=== PATIENT | female | born 1970 | race Caucasian/White ===

== ENCOUNTER 2017-11-26 08:25 | Inpatient (IN) | payer SELFPAY ==
[2017-11-26] MEDS ORDERED: Lidocaine 1% w/Epinephrine 1:100K 20 ML VIAL ONE (09:08)
[2017-11-26] MEDS ORDERED: Bacitracin Zinc 1 Packet ONE (09:58)
[2017-11-26 10:23] LABS: Hemoglobin 12.7 g/dL (12.0-16.0); Red Blood Cell (RBC) Count 3.56 mill/uL (4.20-5.40); White Blood Cell (WBC) Count 4.3 thou/uL (4.8-10.8)
[2017-11-26 10:27] LABS: INR-International Normal Ratio 1.1; PTT 28.5 SEC (22.9-36.1); Prothrombin Time 14.6 SEC (12.0-14.7)
[2017-11-26 10:40] LABS: #Basophils 0.1 thou/uL (0.0-0.2); #Lymphocytes 1.7 thou/uL (1.20-3.40); #Monocytes 0.5 thou/uL (0.11-0.59); %Basophils 1.4 % (0.0-1.0); %Eosinophils 0.6 % (0.0-10.0); %Lymphocytes 40.3 % (21.0-51.0); %Neutrophils 45.6 % (42.0-75.0); MDiff Complete? YES; Mean Corpuscular HGB CONC 33.7 g/dL (32.0-36.0); Mean Corpuscular Hemoglobin 35.7 pg (27.0-31.0); Mean Platelet Volume 7.2 fL (7.4-10.4); Platelet Count 233 thou/uL (130-400); RBC Distribution Width 11.9 % (11.5-14.5)
[2017-11-26 10:41] LABS: Macrocytosis SLIGHT = 6-15 cells (100X) (0-5/hpf)
[2017-11-26 10:44] LABS: ALT (SGPT) 38 U/L (8-55); AST (SGOT) 91 U/L (5-34); Albumin 3.7 g/dL (3.5-5.0); Alkaline Phosphatase 123 U/L (40-150); Anion Gap 18 mmol/L (10-20); BUN (Urea Nitrogen) 5 mg/dL (7.0-18.7); Bilirubin, Total 0.5 mg/dL (0.2-1.2); Calc. Creatinine Clearance 0 mL/min (70-130); Calcium 8.6 mg/dL (7.8-10.44); Carbon Dioxide 23 mmol/L (22-29); Chloride 102 mmol/L (98-107); Estimated GFR-MDRD 83; Globulin 3.3 g/dL (2.4-3.5); Glucose 102 mg/dL (70-105); Sodium 140 mmol/L (136-145)
[2017-11-26 10:47] LABS: Potassium 2.6 mmol/L (3.5-5.1)
--- NOTE | 2017-11-26 11:02 | CT ---
BRAIN CT WITHOUT IV CONTRAST: History: 47-year-old female with history of hitting head after a fall with a right sided laceration. FINDINGS: There is right frontal scalp swelling. No focal mass or midline shift. No intra or extraaxial hemorrh age. Sinuses and mastoids are clear. IMPRESSION: No acute intracranial process. No mass or bleed. Right scalp injury. POS: [facility]
--- NOTE | 2017-11-26 11:14 | CT ---
CT CERVICAL SPINE WITHOUT CONTRAST: History: Trauma. Post-traumatic pain. Comparison: None. Technique: Cervical spine CT is performed without contrast. Reformatted images are submitted for inte rpretation. FINDINGS: There is no prevertebral soft tissue swelling. No epidural hematoma. Degenerative change in the cervi rojas spine result in mild central canal stenosis and varying degrees of foraminal narrowing. Evaluatio n is limited due to technique. Upper mediastinum and lung apices are unremarkable. There is appropriate alignment of the lateral masses of C1 and C2. Odontoid process is intact. There is appropriate alignment of the facets. Straightening of the normal cervical lordosis may be due to patient position, muscle spasm or cervica l collar. Current study is not tailored to assess for ligamentous injury. Cervical spine vertebral body height is maintained. No fracture. IMPRESSION: 1. No fracture. 2. Straightening of the normal cervical lordosis as above. Current study is not tailored to assess fo r ligamentous injury. POS: [facility]
[2017-11-26 11:28] LABS: Acetaminophen Less than 6.0 mcg/mL (10.0-30.0); Alcohol 282 mg/dL (Less than 10); Salicylate Less than 8.0 mg/dL (15.0-30.0)
[2017-11-26] MEDS ORDERED: NS 0.9% w/ 40 MEQ KCL 1,000 ML IV SCH (12:45)
[2017-11-26 13:16] LABS: Bilirubin Negative (Negative); Blood, Urine Negative (Negative); Clarity CLOUDY (Clear); Glucose, Urine (Dipstick) Negative (Negative); Leukocyte Large (Negative); Nitrite Negative (Negative); Protein, Urine (Dipstick) Negative (Neg-Trace); Specific Gravity, Urine 1.012 (1.002-1.036); pH, Urine 6.5 (5.0-9.0)
[2017-11-26 13:19] LABS: Bacteria/HPF 1+ HPF (None Seen); WBC/HPF 21-50 HPF (0-3)
[2017-11-26 13:27] LABS: Amphetamine Not Detected (NotDetected); Barbiturates Screen Not Detected (NotDetected); Benzodiazepine Screen Not Detected (NotDetected); Cocaine Metabolite Screen Not Detected (NotDetected); Medtox Control Line Valid? VALID (VALID); Medtox Reader # READER 4; Methadone Not Detected (NotDetected); Methamphetamine Not Detected (NotDetected); Opiate Screen Not Detected (NotDetected); Oxycodone Screen Not Detected (NotDetected); Phencyclidine (PCP) Not Detected (NotDetected); THC/Cannabinoid Screen Not Detected (NotDetected); Tricyclic Screen Not Detected (NotDetected)
[2017-11-26 13:32] LABS: Hyaline Casts/LPF 0-3 HYALINE CAST LPF (0-3 Hyaline)
[2017-11-26] MEDS ORDERED: Potassium Chloride 40 MEQ in Premix Bag 1 BAG IVPB SCH (13:45)
[2017-11-26] MEDS ORDERED: Multivitamins, Adult 10 ML, Folic Acid 1 MG, Thiamine HCl 100 MG in Dextrose 5 %-0.45 %... IV SCH (13:45)
[2017-11-26] MEDS ORDERED: Potassium Chloride 40 MEQ, Admixture Fee 1 EACH in Sodium Chloride 0.9% 250 ML 250 ML IVPB SCH (14:15)
--- NOTE | 2017-11-26 14:28 | HP ---
DATE OF ADMISSION: 11/26/2017 CHIEF COMPLAINT: Fall. PRIMARY CARE PHYSICIAN: Gil Sparks M.D. HISTORY OF PRESENTING ILLNESS: Ms. Elena is a 47-year-old female with past medical history of alcoholism and lupus with Raynaud's phenomena, who presented to the emergency room with above-men tioned complaints. History is mainly obtained by the patient herself and supplemented by her mother present at the room. Case has been discussed with admitting ER physician, Dr. Carson Aguayo. According to the patient, she woke up to go to the bathroom this morning, tripped and fell in the sofiya ing room and hit her head. She has developed a laceration on the right side of the head. She denies any loss of consciousness. She was in her brother's house at that time. Her brother called EMS. U ran presentation to the emergency room, she was found to have a 3 cm laceration on the right upper fo rehead with active bleeding. Since then, she has had that bandaged and taken care by ER physician. She also gives history of heavy alcohol drinking in the last few days. She has been served papers yesterday and has been sleeping on her brother's couch. She reported drinking multiple alcoho lic drinks of "Fireball" multiple times a week and yesterday she drank even more. Her alcohol level was elevated to 282 in the Emergency Room today. The reason for Natalie admission is incidental fin ding of potassium of 2.6. The patient has no history of hypokalemia in the past as far as she knows, and she is not on any diuretics. She does report eating poorly for the last week or so and heavy dr inking. Upon presentation to the emergency room, she was hemodynamically stable with blood pressure of 118/94 . She is mildly tachycardic to 109. There was some question of suicidal ideation and police was inv olved. She has denied any suicidal ideation to me and to the police. However, her family is very co ncerned that she was suicidal and this was a suicidal attempt including her who was contacted by the ER physician. Because of that and because of low potassium, decision has been made to admit her to the hospital for MR evaluation, correction of low potassium. Her EKG did not have any montgomery es related to her low potassium status. So far, she has received 40 mEq of potassium in the emergency room and is hemodynamically stable. Swati paulino has also been started on normal saline with potassium. PAST MEDICAL HISTORY: 1. Lupus as per the patient. She states she is in remission and currently is not being seen by any child development director. 2. History of alcoholism. PAST SURGICAL HISTORY: Left ankle replacement x2. SOCIAL HISTORY: She says that she used to drink heavily, but went into rehabilitation one year ago, but unfortunately, she remained only sober for 2 months and then fell off the wagon. She is currentl y an active drinker, some days more and some days less. She vapes, but denies any tobacco abuse. Swati paulino denies any drug abuse. She works at the [employer]. FAMILY HISTORY: Significant for heart disease in her mother and grandmother. No history of stroke o r cancers. ALLERGIES: Listed include ERYTHROMYCIN and LATEX. CURRENT HOME MEDICATIONS: None. REVIEW OF SYSTEMS: The following complete review of systems was negative, unless otherwise mentioned in the HPI or below: Constitutional: Weight loss or gain, ability to conduct usual activities. Skin: Rash, itching. Eyes: Double vision, pain. ENT/Mouth: Nose bleeding, neck stiffness, pain, tenderness. Cardiovascular: Palpitations, dyspnea on exertion, orthopnea. Respiratory: Shortness of breath, wheezing, cough, hemoptysis, fever or night sweats. Gastrointestinal: Poor appetite, abdominal pain, heartburn, nausea, vomiting, constipation, or diarr hea. Genitourinary: Urgency, frequency, dysuria, nocturia. Musculoskeletal: Pain, swelling. Neurologic/Psychiatric: Anxiety, depression. Allergy/Immunologic: Skin rash, bleeding tendency. It is negative except for those mentioned in the history and physical. She does have a headache at t his point. She denies any hallucinations. LABORATORY DATA AND IMAGING DATA: CBC shows WBCs at 4.3, platelet count of 233. Hemoglobin is 12.7. PT, PTT and INR within normal limits. Serum chemistry reveals potassium of 2.6, otherwise unremark able. AST is 91 with rest of the LFTs being normal. Her serum albumin level is normal at 3.7. Urin e drug screen is negative. Salicylate, acetaminophen levels within normal limits and plasma alcohol level elevated to 282. Her CT scan of the brain done in the emergency room by my review has no evide nce to suggest any hemorrhage or subdural hematoma or concussion. CT scan of the cervical spine is n egative for any fractures. A 12-lead EKG shows sinus tachycardia by my review. Otherwise unremarkab le. No U-waves are seen. PHYSICAL EXAMINATION: VITAL SIGNS: Most recent vital signs include temperature 98.2, blood pressure 95/72, pulse of 110, r espirations 17, and saturating 100% on room air. GENERAL: She is awake, alert, oriented, but is very tremulous and agitated. She is able to answer s imple questions and follow simple commands. Mother is at bedside. HEENT: Her head is lacerated and bandaged on the right forehead with some blood on the pillow. Pupi ls are equally reactive to light and accommodation. Extraocular movement intact. NECK: Supple without any lymphadenopathy, JVD or bruit. CHEST: Clear to auscultation without any wheezing, rales or rhonchi. Rate and rhythm is regular wit hout any murmur, rubs or gallops. ABDOMEN: Soft, nontender, nondistended with positive bowel sounds. EXTREMITIES: Free of any cyanosis, clubbing, edema, or lacerations. NEUROLOGIC: She appears tremulous and agitated, but otherwise unremarkable and nonfocal. SKIN: Free of any rashes or bruises. Feels warm and dry to touch. PSYCHIATRIC: Appears agitated at this time. VASCULAR: She denies any suicidal ideation. IMPRESSION AND PLAN: 1. Hypokalemia. This is most likely secondary to chronic alcohol abuse and nutritional deficiency. We will continue to replace and check after some replacement later in the day and continue to follow it closely. We will also check magnesium level and replace as needed. The patient does not have an y evidence of renal insufficiency. She is not on any diuretics that would cause hypokalemia. At thi s time, she has no EKG changes and is hemodynamically stable, so will be admitted to the medical [facility]. 2. Acute alcoholic intoxication. The patient is at very high risk for alcohol withdrawal symptoms a nd has started to exhibit some symptoms already. We will put her on ASE protocol and use Librium tap er for the next few days. She will be started on a banana bag with multivitamin, thiamine, and folic acid after the normal saline with KCl bag is finished and started by ER physician. We will also use Ativan IV p.r.n. if the symptoms are not under control. 3. Head trauma and laceration. At this time, the patient has received wound care by the emergency r oom physician. We will monitor neurological status. Currently, no signs or symptoms to suggest conc ussion. She does not have any intracerebral or subdural bleed. 4. Alcohol abuse. The patient is on ASE protocol for now. She denies any suicidal ideation. We wi ll have her see [facility] for safety sake as the family is concerned about suicidal attempt. 5. Elevated liver enzymes, likely secondary to chronic alcoholic liver disease sequelae. Continue t o monitor. We will avoid any further hepatotoxic medications. 6. Code status: FULL CODE. Discussed with the patient and her mother. 7. Deep venous thrombosis and gastrointestinal prophylaxis. 8. Frequent neuro checks. DISPOSITION: Ms. Elena is now being admitted to the hospital for acute alcoholic intoxication as wel l as head laceration and mainly for hypokalemia workup. Further management will depend upon her clin ical course. Estimated length of stay is 2-3 midnights especially because the patient remains at [facility] for alcohol withdrawal.
[2017-11-26] MEDS ORDERED: Acetaminophen 325 MG TAB PO PRN (15:18)
[2017-11-26] MEDS ORDERED: cloNIDine 0.1 MG TAB PO PRN (15:18)
[2017-11-26] MEDS ORDERED: Nitroglycerin 0.4 MG TAB (25 Tab Bottle) SL PRN (15:18)
[2017-11-26] MEDS ORDERED: Bisacodyl 5 MG TAB PO PRN (15:18)
[2017-11-26] MEDS ORDERED: Mag-Al 1200 mg/1200 mg/30 ML UDCUP PO PRN (15:18)
[2017-11-26] MEDS ORDERED: Calcium Carbonate 500 MG ChewTAB PO PRN (15:18)
[2017-11-26] MEDS ORDERED: Ondansetron HCl/PF 4 MG/2 ML Vial IVP PRN ×2 (15:18)
[2017-11-26] MEDS ORDERED: Senokot 8.6 MG TAB PO PRN (15:18)
[2017-11-26] MEDS ORDERED: Benzonatate 100 MG CAP PO PRN (15:18)
[2017-11-26] MEDS ORDERED: hydrALAZINE 20 MG/ML VIAL SLOW IVP PRN (15:18)
[2017-11-26] MEDS ORDERED: Diabetic Tussin 200 MG/10 ML UDCUP PO PRN (15:18)
[2017-11-26] MEDS ORDERED: Loratadine 10 MG TAB PO PRN (15:18)
[2017-11-26] MEDS: traMADol HCl 50 MG TAB PO PRN ×2 (16:06→20:06)
[2017-11-26] MEDS: Lorazepam 2 MG/ML VIAL SLOW IVP PRN (16:36)
[2017-11-26 17:49] LABS: Potassium 3.2 mmol/L (3.5-5.1)
[2017-11-26] MEDS: Famotidine 20 MG TAB PO SCH (20:06)
[2017-11-26] MEDS ORDERED: Lorazepam 2 MG/ML VIAL SLOW IVP SCH (20:30)
[2017-11-27] MEDS: traMADol HCl 50 MG TAB PO PRN ×2 (01:48→05:56)
[2017-11-27] MEDS: Lorazepam 2 MG/ML VIAL SLOW IVP PRN ×2 (02:22→18:50)
[2017-11-27 04:43] LABS: #Basophils 0.1 thou/uL (0.0-0.2); #Lymphocytes 1.5 thou/uL (1.20-3.40); #Monocytes 0.4 thou/uL (0.11-0.59); #Neutrophils 1.9 thou/uL (1.40-6.50); %Basophils 1.4 % (0.0-1.0); %Eosinophils 0.9 % (0.0-10.0); %Lymphocytes 38.5 % (21.0-51.0); %Monocytes 10.4 % (0.0-10.0); %Neutrophils 48.8 % (42.0-75.0); Hemoglobin 9.8 g/dL (12.0-16.0); Mean Corpuscular HGB CONC 33.5 g/dL (32.0-36.0); Mean Corpuscular Hemoglobin 35.8 pg (27.0-31.0); Mean Platelet Volume 7.4 fL (7.4-10.4); Platelet Count 141 thou/uL (130-400); Red Blood Cell (RBC) Count 2.73 mill/uL (4.20-5.40); White Blood Cell (WBC) Count 3.9 thou/uL (4.8-10.8)
[2017-11-27 04:52] LABS: ALT (SGPT) 34 U/L (8-55); AST (SGOT) 78 U/L (5-34); Albumin 3.3 g/dL (3.5-5.0); Alkaline Phosphatase 105 U/L (40-150); Anion Gap 11 mmol/L (10-20); BUN (Urea Nitrogen) 5 mg/dL (7.0-18.7); Calc. Creatinine Clearance 95 mL/min (70-130); Calcium 8.1 mg/dL (7.8-10.44); Carbon Dioxide 24 mmol/L (22-29); Chloride 106 mmol/L (98-107); Estimated GFR-MDRD Greater than 90; Globulin 2.6 g/dL (2.4-3.5); Glucose 99 mg/dL (70-105); Potassium 3.1 mmol/L (3.5-5.1); Protein, Total 5.9 g/dL (6.0-8.3); Sodium 138 mmol/L (136-145)
[2017-11-27] MEDS: Enoxaparin Sodium 40 MG/0.4 ML SYRINGE SC SCH (08:28)
[2017-11-27] MEDS: Famotidine 20 MG TAB PO SCH ×2 (08:28→21:10)
[2017-11-27 13:19] VITALS: BMI 20.5
--- NOTE | 2017-11-27 15:15 | PDOC.PN ---
- Subjective Encounter Start Date: 11/27/17 Encounter Start Time: 15:10 Subjective: f/u for ETOH abuse and hypokalemia. States feeling better. Appetite -: improved. Still shaky. - Objective MAR Reviewed: Yes Vital Signs & Weight: Vital Signs (12 hours) Temp Pulse Resp BP Pulse Ox 11/27/17 08:00 98.3 F 95 16 11/27/17 07:44 98.3 F 95 16 146/89 H 100 11/27/17 04:00 98.8 F 107 H 22 H 141/73 H 98 Weight Admit Weight 131 lb 6 oz Weight 131 lb 6 oz Result Diagrams: 11/27/17 03:54 11/27/17 03:54 Additional Labs: Laboratory Tests 11/26/17 11/26/17 11/26/17 10:09 10:09 10:09 Hgb 12.7 Potassium 2.6 L* Plasma Alcohol 282 11/26/17 17:16 Hgb Potassium 3.2 L Plasma Alcohol Radiology Reviewed by me: Yes (CT brain - negative) Phys Exam - Physical Examination alert, anxious, shaking HEENT: PERRLA, oral pharynx no lesions Neck: no JVD, supple Respiratory: no wheezing, clear to auscultation bilateral tachycardic Gastrointestinal: soft, non-tender, no distention, positive bowel sounds Musculoskeletal: no edema, pulses present + asterixis rapid speech Neurological: normal sensation, moves all 4 limbs Skin: normal turgor, cap refill <2 seconds Dx/Plan (1) Acute alcohol intoxication Code(s): F10.929 - ALCOHOL USE, UNSPECIFIED WITH INTOXICATION, UNSPECIFIED Status: Acute Comment: Change Librium 20mg TID, Ativan IV prn, continue MVI, Thiamine and Folate, [facility] consult for dispo options (2) Hypokalemia Code(s): E87.6 - HYPOKALEMIA Status: Acute Comment: Add KCL 40meq BID, repeat K+ level in am (3) Hypomagnesemia Code(s): E83.42 - HYPOMAGNESEMIA Status: Acute Comment: Check Mg++ level in am (4) Closed head injury Code(s): S09.90XA - UNSPECIFIED INJURY OF HEAD, INITIAL ENCOUNTER Status: Acute Comment: Local care, pain control, CT of brain negative - Plan PT/OT, social work faculty member Stable overall -: Continue Librium 20mg TID -: MVI, Thiamine and Folate -: [facility] consult -: AM lab: BMP, Mg++ * .
[2017-11-27] MEDS: Potassium Chloride 20 MEQ TAB PO SCH (18:55)
[2017-11-27] MEDS ORDERED: Venlafaxine HCl XR 75 MG CAP PO SCH (22:15)
[2017-11-27] MEDS ORDERED: hydrOXYzine 25 MG TAB PO SCH (22:15)
[2017-11-27] MEDS ORDERED: traZODone HCl 50 MG TAB PO SCH (22:15)
[2017-11-28 06:35] LABS: Anion Gap 18 mmol/L (10-20); BUN (Urea Nitrogen) 5 mg/dL (7.0-18.7); Calc. Creatinine Clearance 99 mL/min (70-130); Carbon Dioxide 21 mmol/L (22-29); Chloride 101 mmol/L (98-107); Estimated GFR-MDRD Greater than 90; Glucose 69 mg/dL (70-105); Magnesium 1.4 mg/dL (1.6-2.6); Potassium 3.5 mmol/L (3.5-5.1); Sodium 136 mmol/L (136-145)
[2017-11-28 07:08] VITALS: TEMP 98.3
[2017-11-28] MEDS: Famotidine 20 MG TAB PO SCH (08:29)
[2017-11-28] MEDS: Potassium Chloride 20 MEQ TAB PO SCH (08:29)
[2017-11-28] MEDS: Enoxaparin Sodium 40 MG/0.4 ML SYRINGE SC SCH (08:30)
[2017-11-28] MEDS ORDERED: Cyanocobalamin (Vitamin B-12) 1,000 MCG TAB PO SCH (09:00)
[2017-11-28] MEDS ORDERED: Multivitamin W/ Minerals 1 TAB PO SCH ×2 (09:00)
[2017-11-28] MEDS ORDERED: Folic Acid 1 MG TAB PO SCH (09:00)
[2017-11-28] MEDS ORDERED: hydrOXYzine 25 MG TAB PO SCH (09:00)
--- NOTE | 2017-11-28 16:16 | PDOC.PN ---
- Subjective Encounter Start Date: 11/28/17 Encounter Start Time: 08:00 Subjective: feels good, wants to go home -: is amb in room and eating well - Objective MAR Reviewed: Yes Vital Signs & Weight: Vital Signs (12 hours) Temp Pulse Resp BP Pulse Ox 11/28/17 07:08 98.3 F 97 18 136/79 95 11/28/17 07:05 98.6 F 116 H 20 Weight Admit Weight 131 lb 6 oz Weight 131 lb 6 oz Result Diagrams: 11/27/17 03:54 11/28/17 05:22 Phys Exam - Physical Examination HEENT: PERRLA, moist MMs Neck: no JVD, supple Respiratory: no wheezing, no rales Cardiovascular: RRR, no significant murmur Gastrointestinal: soft, non-tender, positive bowel sounds Musculoskeletal: no edema, pulses present Neurological: non-focal, moves all 4 limbs Psychiatric: A&O x 3 Dx/Plan (1) Acute alcohol intoxication Code(s): F10.929 - ALCOHOL USE, UNSPECIFIED WITH INTOXICATION, UNSPECIFIED Status: Acute (2) Closed head injury Code(s): S09.90XA - UNSPECIFIED INJURY OF HEAD, INITIAL ENCOUNTER Status: Acute Qualifiers: Encounter type: subsequent encounter Qualified Code(s): S09.90XD - Unspecified injury of head, subsequent encounter Comment: Local care, pain control, CT of brain negative (3) Hypokalemia Code(s): E87.6 - HYPOKALEMIA Status: Acute - Plan hemostable -: wants to quit alcohol gradually and not cold turkey per patient -: dc pt home * .
--- NOTE | 2017-11-28 20:29 | DIS ---
DATE OF ADMISSION: 11/26/2017 DATE OF DISCHARGE: 11/28/2017 DISCHARGE DISPOSITION: To home. PRIMARY DISCHARGE DIAGNOSES: Alcohol abuse with intoxication, hypokalemia, closed head injury with scalp laceration, status post suturing done by ER physician. PROCEDURES DONE DURING HOSPITALIZATION: H and H 9.8 and 29, platelet count 141 , MCV is 107. White count of 3.9. INR 1.1. Discharge potassium levels were 3.5, BUN 5, creatinine 0.6, total bilirubin 0.5. Initial AST was 91, albumin 3.7. UA showed large leukocyte esterase with 21-50 wbc's and 1+ bacteria. Initial plasma alcohol levels were 282 mg per deciliter. Urine drug screen was negative. DISCHARGE MEDICATIONS: Vitamin B12 1000 mcg p.o. daily, multivitamin 1 tab once daily, Bactrim double strength 1 tab p.o. twice daily for a total duration of 5 days for urinary tract infection, thiamine 100 mg p.o. daily, trazodone 100 mg p.o. at bedtime, venlafaxine extended-release 225 mg p.o. at bedtime. ALLERGIES: ERYTHROMYCIN and LATEX. DISCHARGE PLAN: Patient to follow up with her primary care physician in 1 week. BRIEF COURSE DURING HOSPITALIZATION: Patient initially was brought to emergency room after she tripped and fell in living room and hit her head. She had lacerations on the right side of her head, which was sutured in the ER. Her initial alcohol levels were 282 mg per deciliter. She was essentially admitted for acute alcoholic intoxication with a scalp laceration with trauma. This morning, she is feeling comfortable and is wanting to go home. [employer] evaluated her during her stay here and has cleared her with the safety plan. She is hemodynamically stable. When asked about quitting alcohol, patient states she would like to do it in a slow pace and not quit cold turkey. She states she has been drinking nearly 600 mL of whiskey on a daily basis. She was counseled with regards to alcohol cessation. She is ambulating in the room and eating well prior to discharge. She needs to follow up with her primary care physician in 1 week. HAO
[2017-11-28] MEDS ORDERED: MELATONIN 40 MG PO SCH (21:00)
[2017-11-28] MEDS ORDERED: traZODone HCl 50 MG TAB PO SCH (21:00)
[2017-11-28] MEDS ORDERED: Venlafaxine HCl XR 75 MG CAP PO SCH (21:00)
[2017-11-29 10:13] VITALS: BP 146/89
--- NOTE | 2017-12-26 17:33 | EKG ---
Test Reason : Blood Pressure : / mmHG Vent. Rate : 101 BPM Atrial Rate : 101 BPM P-R Int : 146 ms QRS Dur : 084 ms QT Int : 370 ms P-R-T Axes : 053 -01 027 degrees QTc Int : 479 ms Sinus tachycardia Otherwise normal ECG Confirmed by KD NAVARRO, LEXIE ([id number]), editor house organ JENNIFER BAZAN ([id number]) on 12/26/2017 5:33:03 PM Referred By: Confirmed By:LEXIE YI MD
== END 2017-11-28 11:05 | disposition home or self-care (01) | DRG 914 ==
LOC: ERS 08:25 → T4-A 12:46
PROVIDERS: ADMIT Internal Medicine; ATTEND Internal Medicine
PROC: 0HQ1XZZ Repair Face Skin, External Approach (ICD-10-PCS; principal; 2017-11-26)
DX: S09.90XA Unspecified injury of head, initial encounter (principal); M32.9 Systemic lupus erythematosus, unspecified; E87.6 Hypokalemia; F10.929 Alcohol use, unspecified with intoxication, unspecified; I73.00 Raynaud's syndrome without gangrene; W01.0XXA Fall on same level from slipping, tripping and stumbling without subsequent striking against object, initial encounter; Y93.89 Activity, other specified; Y92.008 Other place in unspecified non-institutional (private) residence as the place of occurrence of the external cause
CPT/HCPCS: 12013; 36415; 70450; 72125; 80048; 80053; 80306; 80307; 81003; 81015; 83735; 85025; 85610; 85730; 93005; 96360; 96361; A4216; J1650; J2001; J2060; J3411; J3475; J3480; J7042; J7050

== ENCOUNTER 2017-12-01 10:30 | Emergency (ER) | payer BC, SELFPAY ==
[2017-12-01] MEDS ORDERED: Clindamycin/D5W 900 mg/50 ml Premix Bag ONE (11:45)
[2017-12-01] MEDS ORDERED: HYDROcodone/Acetaminophen 10/325 mg Tablet ONE (12:07)
== END 2017-12-01 12:55 | disposition home or self-care (01) ==
LOC: ERS 10:30
DX: T81.4XXA Infection following a procedure, initial encounter (principal); L03.211 Cellulitis of face; F32.9 Major depressive disorder, single episode, unspecified
CPT/HCPCS: 96365; J3490

== ENCOUNTER 2017-12-02 09:21 | Emergency (ER) | payer BC, MEDICAID | END 2017-12-02 15:08 | disposition home or self-care (01) | LOC: ERS 09:21 | DX: S01.81XD Laceration without foreign body of other part of head, subsequent encounter (principal); F32.9 Major depressive disorder, single episode, unspecified | CPT/HCPCS: 99282 ==